=== PATIENT | female | born 1975 | race Native Hawaiian/Other Pacific Islander ===

== ENCOUNTER 2019-11-17 19:59 | Emergency (ER) | payer OTHER ==
[~2019-11-17] VITALS: Ht 172.7 cm; Wt 88.5 kg
[2019-11-17 20:05] VITALS: BP 172/84; TEMP 97.9
== END 2019-11-17 20:48 | disposition home or self-care (01) ==
LOC: ED 19:59
DX: S63.92XA Sprain of unspecified part of left wrist and hand, initial encounter (principal); X58.XXXA Exposure to other specified factors, initial encounter
CPT/HCPCS: 99283

== ENCOUNTER 2020-03-26 22:17 | Emergency (ER) | payer OTHER ==
[~2020-03-26] VITALS: Ht 172.7 cm; Wt 88.5 kg
[2020-03-26 23:15] LABS: PLATELET COUNT 509 K/uL (152-353)
[2020-03-26 23:23] LABS: POTASSIUM 4.7 mmol/L (3.6-5.2)
[2020-03-26 23:27] LABS: PARTIAL THROMBOPLASTIN TIME 24.1 SECONDS (24.5-33.6)
[2020-03-27 00:39] VITALS: BP 126/91; TEMP 99.1
== END 2020-03-27 00:39 | disposition home or self-care (01) ==
LOC: ED 22:17
PROVIDERS: Hospitalist
DX: H00.034 Abscess of left upper eyelid (principal); E11.65 Type 2 diabetes mellitus with hyperglycemia
CPT/HCPCS: 36415; 80048; 85027; 85610; 85730; 87040; 96360; 96365; 96375; 99284; J1815; J1885; J3370

== ENCOUNTER 2020-04-26 21:14 | Emergency (ER) | payer OTHER ==
[~2020-04-26] VITALS: Ht 172.7 cm; Wt 83.5 kg
[2020-04-26 22:55] LABS: PLATELET COUNT 511 K/uL (152-353)
[2020-04-26 23:15] LABS: SODIUM 127 mmol/L (136-145)
[2020-04-26 23:24] LABS: PARTIAL THROMBOPLASTIN TIME 27.1 SECONDS (24.5-33.6)
[2020-04-27 07:00] VITALS: TEMP 98.2
[2020-04-27 09:12] VITALS: BP 133/87
== END 2020-04-27 09:17 | disposition still patient (30) ==
LOC: ED 21:14
PROVIDERS: Hospitalist
DX: L02.212 Cutaneous abscess of back [any part, except buttock and flank] (principal); R50.9 Fever, unspecified; E11.9 Type 2 diabetes mellitus without complications
CPT/HCPCS: 36415; 80053; 81002; 82550; 82962; 83605; 83880; 84484; 85007; 85027; 85610; 85730; 87040; 93005; 96360; 96365; 96366; 96375; 96376; 99284; J1815; J1885; J1956; J2405; J3370; Q9963

== ENCOUNTER 2020-06-12 23:58 | Inpatient (IN) | payer OTHER ==
[~2020-06-12] VITALS: Ht 172.7 cm; Wt 90.4 kg
[2020-06-13 00:50] LABS: PLATELET COUNT 440 K/uL (152-353)
[2020-06-13 01:04] LABS: POTASSIUM 4.6 mmol/L (3.6-5.2)
[2020-06-13 07:00] VITALS: BP 129/87
[2020-06-13 08:00] VITALS: BP 129/92
[2020-06-13 08:30] VITALS: BP 134/87
[2020-06-13 14:59] VITALS: BP 174/80; TEMP 98.5; Ht 172.7 cm; Wt 90.4 kg
[2020-06-13 20:25] VITALS: BP 144/96; TEMP 99.6
[2020-06-13 23:42] VITALS: BP 156/94; TEMP 101.8
[2020-06-14 05:49] LABS: PLATELET COUNT 391 K/uL (152-353)
[2020-06-14 06:03] LABS: POTASSIUM 3.8 mmol/L (3.6-5.2)
[2020-06-14 08:00] VITALS: BP 141/95; TEMP 98.3
[2020-06-14 12:00] VITALS: BP 189/85; TEMP 98.4
[2020-06-14] MEDS ORDERED: NOVOLIN 70/30 RELION SC (13:34)
[2020-06-14 16:00] VITALS: BP 170/86; TEMP 98.5
[2020-06-14 20:21] VITALS: BP 198/97; TEMP 98.5
[2020-06-15] VITALS: BP 142/81; TEMP 99
[2020-06-15 04:16] VITALS: BP 138/94; TEMP 99.9
[2020-06-15 04:30] LABS: PLATELET COUNT 453 K/uL (152-353)
[2020-06-15 05:27] LABS: POTASSIUM 3.7 mmol/L (3.6-5.2)
[2020-06-15 08:00] VITALS: BP 194/101; TEMP 99.2
[2020-06-15 12:00] VITALS: BP 160/77; TEMP 98.2
[2020-06-15 20:00] VITALS: BP 172/80; TEMP 99
[2020-06-16] VITALS: BP 144/76; TEMP 98.4
[2020-06-16 04:00] VITALS: BP 172/87; TEMP 98.7
[2020-06-16 05:39] LABS: PLATELET COUNT 488 K/uL (152-353)
[2020-06-16 05:49] LABS: POTASSIUM 4.7 mmol/L (3.6-5.2)
[2020-06-16 08:00] VITALS: BP 171/78; TEMP 97.4
== END 2020-06-16 13:10 | disposition home or self-care (01) | DRG 871 ==
LOC: ED 23:58 → MED/SURG 06-13 07:50
PROVIDERS: Internal Medicine; Internal Medicine Endocrinology, Diabetes & Metabolism; ADMIT Family Medicine
DX: A41.89 Other specified sepsis (principal); J15.0 Pneumonia due to Klebsiella pneumoniae; E87.1 Hypo-osmolality and hyponatremia; N30.00 Acute cystitis without hematuria; I10 Essential (primary) hypertension; E11.9 Type 2 diabetes mellitus without complications; B96.1 Klebsiella pneumoniae [K. pneumoniae] as the cause of diseases classified elsewhere; B86 Scabies
CPT/HCPCS: 36415; 80048; 80053; 80202; 80307; 81000; 82947; 82962; 83605; 85007; 85027; 87040; 87077; 87086; 87088; 87186; 87205; 96360; 96365; 96368; 96375; 96376; 99284; J0132; J0360; J0696; J1650; J1815; J2185; J2405; J2550; J2930; J3370; J3490; Q9963

== ENCOUNTER 2020-06-30 14:21 | Emergency (ER) | payer OTHER ==
[~2020-06-30] VITALS: Ht 172.7 cm; Wt 90.3 kg
[~2020-06-30 14:21] MED LIST: NOVOLIN 70/30 RELION SC
[2020-06-30 14:36] VITALS: TEMP 99.1
[2020-06-30 16:57] VITALS: BP 112/80
== END 2020-06-30 16:57 | disposition home or self-care (01) ==
LOC: ED 14:21
DX: B86 Scabies (principal); L25.9 Unspecified contact dermatitis, unspecified cause
CPT/HCPCS: 96372; 99283; J2930

== ENCOUNTER 2020-07-19 17:49 | Emergency (ER) | payer OTHER ==
[~2020-07-19] VITALS: Ht 172.7 cm; Wt 90.3 kg
[2020-07-19 18:49] LABS: PLATELET COUNT 532 K/uL (152-353)
[2020-07-19 18:58] LABS: POTASSIUM 4.6 mmol/L (3.6-5.2)
[2020-07-19 19:10] LABS: PARTIAL THROMBOPLASTIN TIME 24.5 SECONDS (24.5-33.6)
[2020-07-19 20:15] VITALS: BP 118/82; TEMP 98.4
== END 2020-07-19 20:15 | disposition home or self-care (01) ==
LOC: ED 17:49
PROVIDERS: Hospitalist
DX: L03.211 Cellulitis of face (principal); E11.65 Type 2 diabetes mellitus with hyperglycemia; Z79.4 Long term (current) use of insulin; W57.XXXA Bitten or stung by nonvenomous insect and other nonvenomous arthropods, initial encounter; Y92.89 Other specified places as the place of occurrence of the external cause
CPT/HCPCS: 36415; 80048; 83605; 85027; 85610; 85730; 87040; 96360; 96365; 96375; 99284; J1815; J1885; J3370; Q9963

== ENCOUNTER 2020-08-17 21:37 | Inpatient (IN) | payer OTHER ==
[~2020-08-17] VITALS: Ht 172.7 cm; Wt 80.5 kg
[2020-08-17 21:40] VITALS: BP 122/86; TEMP 98
[2020-08-17 22:19] LABS: PLATELET COUNT 634 K/uL (152-353)
[2020-08-17 22:37] LABS: POTASSIUM 4.2 mmol/L (3.6-5.2); SODIUM 127 mmol/L (136-145)
[2020-08-17 23:19] LABS: PARTIAL THROMBOPLASTIN TIME 28.2 SECONDS (24.5-33.6)
[2020-08-18] VITALS (12 sets, daily range): BP systolic 97–134; BP diastolic 60–96; TEMP 97.6–98.8; Ht 172.7 cm; Wt 80.5 kg
[2020-08-18 06:00] LABS: PLATELET COUNT 602 K/uL (152-353)
[2020-08-18 06:21] LABS: POTASSIUM 4.3 mmol/L (3.6-5.2); SODIUM 132 mmol/L (136-145)
== END 2020-08-18 11:55 | disposition short-term general hospital (02) | DRG 871 ==
LOC: ED 21:37 → ICU 08-18 01:13
PROVIDERS: Hospitalist; ADMIT Internal Medicine; ATTEND Internal Medicine
DX: A41.89 Other specified sepsis (principal); E11.10 Type 2 diabetes mellitus with ketoacidosis without coma; L02.415 Cutaneous abscess of right lower limb; L02.214 Cutaneous abscess of groin; L02.611 Cutaneous abscess of right foot; L02.413 Cutaneous abscess of right upper limb; I10 Essential (primary) hypertension; E11.42 Type 2 diabetes mellitus with diabetic polyneuropathy; B95.62 Methicillin resistant Staphylococcus aureus infection as the cause of diseases classified elsewhere; B96.5 Pseudomonas (aeruginosa) (mallei) (pseudomallei) as the cause of diseases classified elsewhere
CPT/HCPCS: 36415; 36416; 36600; 80053; 80320; 81000; 81002; 81025; 82550; 82805; 82947; 83605; 83880; 84484; 85027; 85610; 85730; 87070; 87077; 87088; 87185; 87186; 87205; 87635; 93005; 96360; 96361; 96365; 96375; 99285; J1650; J1815; J1956; J2270; J2405; J2543; J3370; J3490; Q9963; U0003

== ENCOUNTER 2020-12-27 14:07 | Emergency (ER) | payer OTHER ==
[~2020-12-27] VITALS: Ht 172.7 cm; Wt 84.4 kg
[2020-12-27 14:11] VITALS: TEMP 97.5
[2020-12-27 14:31] VITALS: BP 135/99
[2020-12-27 14:52] LABS: PLATELET COUNT 481 K/uL (152-353)
[2020-12-27 15:05] LABS: POTASSIUM 4.3 mmol/L (3.6-5.2)
== END 2020-12-27 16:12 | disposition home or self-care (01) ==
LOC: ED 14:07
PROVIDERS: Hospitalist
DX: E11.621 Type 2 diabetes mellitus with foot ulcer (principal); E11.65 Type 2 diabetes mellitus with hyperglycemia; L97.529 Non-pressure chronic ulcer of other part of left foot with unspecified severity; Z79.4 Long term (current) use of insulin; W50.0XXA Accidental hit or strike by another person, initial encounter; Y92.89 Other specified places as the place of occurrence of the external cause
CPT/HCPCS: 36415; 36600; 80053; 81002; 82805; 83605; 85027; 87040; 96360; 96361; 96365; 96375; 99284; J1815; J1885; J3370

== ENCOUNTER 2021-01-01 19:53 | Emergency (ER) | payer OTHER | END 2021-01-01 20:49 | disposition home or self-care (01) | LOC: ED 19:53 | DX: R23.9 Unspecified skin changes (principal) | CPT/HCPCS: 99281 ==

== ENCOUNTER 2021-06-12 13:42 | Emergency (ER) | payer OTHER ==
[~2021-06-12] VITALS: Ht 172.7 cm; Wt 85.7 kg
[2021-06-12 13:46] VITALS: TEMP 98.3
[2021-06-12 15:02] VITALS: BP 160/92
== END 2021-06-12 15:02 | disposition home or self-care (01) ==
LOC: ED 13:42
DX: S83.8X2A Sprain of other specified parts of left knee, initial encounter (principal); S93.492A Sprain of other ligament of left ankle, initial encounter; Z98.890 Other specified postprocedural states; W01.0XXA Fall on same level from slipping, tripping and stumbling without subsequent striking against object, initial encounter; Y92.096 Garden or yard of other non-institutional residence as the place of occurrence of the external cause
CPT/HCPCS: 99282

== ENCOUNTER 2022-01-20 09:17 | Emergency (ER) | payer OTHER ==
[~2022-01-20] VITALS: Ht 172.7 cm; Wt 85.7 kg
[2022-01-20] MEDS ORDERED: 904272561 PO (10:53)
[2022-01-20] MEDS ORDERED: CLINDAMYCIN HY300 MG PO (10:53)
[2022-01-20 11:05] VITALS: BP 132/71; TEMP 97
== END 2022-01-20 11:05 | disposition home or self-care (01) ==
LOC: ED 09:17
PROC: 0H96XZZ Drainage of Back Skin, External Approach (ICD-10-PCS; principal; 2022-01-20)
DX: L03.312 Cellulitis of back [any part except buttock and flank] (principal)
CPT/HCPCS: 87070; 87077; 87185; 87186; 87205; 99283

== ENCOUNTER 2022-02-13 00:53 | Emergency (ER) | payer OTHER ==
[~2022-02-13] VITALS: Ht 172.7 cm; Wt 81.6 kg
[~2022-02-13 00:53] MED LIST changes: +904272561 PO; +CLINDAMYCIN HY300 MG PO
[2022-02-13 02:15] LABS: PLATELET COUNT 516 K/uL (152-353)
[2022-02-13 02:31] LABS: POTASSIUM 3.1 mmol/L (3.6-5.2)
[2022-02-13 08:02] VITALS: TEMP 98
[2022-02-13 09:02] VITALS: BP 153/73
== END 2022-02-13 09:50 | disposition short-term general hospital (02) ==
LOC: ED 00:53
PROVIDERS: Emergency Medicine
DX: M86.8X7 Other osteomyelitis, ankle and foot (principal); E11.65 Type 2 diabetes mellitus with hyperglycemia; Z79.4 Long term (current) use of insulin; Z89.412 Acquired absence of left great toe; Z91.14 Patient's other noncompliance with medication regimen; E11.52 Type 2 diabetes mellitus with diabetic peripheral angiopathy with gangrene; I96 Gangrene, not elsewhere classified; L02.413 Cutaneous abscess of right upper limb; E87.6 Hypokalemia; I10 Essential (primary) hypertension; E66.09 Other obesity due to excess calories; Z11.52 Encounter for screening for COVID-19
CPT/HCPCS: 36415; 36600; 80053; 81002; 82805; 83605; 85027; 87040; 87635; 96360; 96365; 96366; 96375; 99284; J0360; J1200; J1815; J2543; U0003

== ENCOUNTER 2022-10-29 18:26 | Inpatient (IN) | payer OTHER ==
[~2022-10-29] VITALS: Ht 170.2 cm; Wt 70.1 kg
[2022-10-29 18:26] VITALS: BP 98/75; TEMP 97.3
[2022-10-29 19:31] LABS: PLATELET COUNT 574 K/uL (152-353)
[2022-10-29 19:34] LABS: SODIUM 131 mmol/L (136-145)
[2022-10-29 22:28] VITALS: BP 159/73; TEMP 98.7; Ht 170.2 cm; Wt 70.1 kg
[2022-10-29 23:32] VITALS: BP 159/76; TEMP 98.7
[2022-10-30 03:56] VITALS: BP 115/62; TEMP 98.4
[2022-10-30 04:28] LABS: PLATELET COUNT 494 K/uL (152-353)
[2022-10-30 08:00] VITALS: BP 115/60; TEMP 99.4
[2022-10-30 12:00] VITALS: BP 148/79; TEMP 98.7
[2022-10-30 16:00] VITALS: BP 123/61; TEMP 99.2
[2022-10-30 19:30] VITALS: BP 148/73; TEMP 100
[2022-10-30 23:39] VITALS: BP 141/69; TEMP 98.8
[2022-10-31 03:48] VITALS: BP 139/72; TEMP 99.3
[2022-10-31 04:33] LABS: PLATELET COUNT 482 K/uL (152-353); POTASSIUM 4.1 mmol/L (3.6-5.2); SODIUM 136 mmol/L (136-145)
[2022-10-31 07:59] VITALS: BP 136/73; TEMP 98.9
[2022-10-31 12:00] VITALS: BP 139/69; TEMP 98.7
[2022-10-31 16:00] VITALS: BP 136/74; TEMP 101.5
[2022-10-31 20:00] VITALS: BP 161/82; TEMP 99
[2022-11-01] VITALS: BP 152/79; TEMP 99.3
[2022-11-01 04:00] VITALS: BP 134/75; TEMP 100.7
[2022-11-01 05:25] LABS: PLATELET COUNT 630 K/uL (152-353)
[2022-11-01 05:40] LABS: POTASSIUM 4.8 mmol/L (3.6-5.2); SODIUM 137 mmol/L (136-145)
[2022-11-01 08:00] VITALS: BP 151/82; TEMP 99
[2022-11-01] MEDS ORDERED: TYLENOL325 MG PO (10:39)
[2022-11-01] MEDS ORDERED: OXYC5TAB53 PO (10:40)
[2022-11-01 12:00] VITALS: BP 141/75; TEMP 98.6
[2022-11-01 16:00] VITALS: BP 154/83; TEMP 98.4
[2022-11-01 20:00] VITALS: BP 161/84; TEMP 98.7
[2022-11-02] VITALS (7 sets, daily range): BP systolic 142–160; BP diastolic 72–86; TEMP 98.2–99.6
[2022-11-02 04:48] LABS: PLATELET COUNT 675 K/uL (152-353)
[2022-11-02 04:55] LABS: POTASSIUM 5.1 mmol/L (3.6-5.2); SODIUM 134 mmol/L (136-145)
[2022-11-03 04:00] VITALS: BP 95/70; TEMP 98.6
[2022-11-03 08:00] VITALS: BP 155/82; TEMP 98.8
[2022-11-03 12:00] VITALS: BP 128/70; TEMP 99
== END 2022-11-03 12:55 | disposition home health service (06) | DRG 602 ==
LOC: ED 18:26 → MED/SURG 20:40
PROVIDERS: ADMIT Emergency Medicine; ATTEND Internal Medicine
DX: L03.314 Cellulitis of groin (principal); J18.8 Other pneumonia, unspecified organism; L03.116 Cellulitis of left lower limb; N39.0 Urinary tract infection, site not specified; B96.20 Unspecified Escherichia coli [E. coli] as the cause of diseases classified elsewhere; R53.81 Other malaise; R62.7 Adult failure to thrive; F32.89 Other specified depressive episodes; Z89.512 Acquired absence of left leg below knee; Z89.511 Acquired absence of right leg below knee; I10 Essential (primary) hypertension; E11.65 Type 2 diabetes mellitus with hyperglycemia; L89.152 Pressure ulcer of sacral region, stage 2
CPT/HCPCS: 36415; 36600; 80048; 80053; 81000; 82805; 83605; 83735; 84100; 84443; 85027; 85379; 86140; 87040; 87077; 87086; 87088; 87186; 87635; 94664; 94760; 96365; 96375; 99284; J0690; J0696; J0878; J1650; J1940; J2270; J2405; J3475; Q9963; U0003